=== PATIENT | female | born 1950 | race Two or more races ===

== ENCOUNTER → 2018-02-05 | Outpatient (CLI) | payer OTHER ==
[~2018-02-05] MED LIST: KETO10TA2 PO; ORPH100T PO
== END | disposition home or self-care (01) ==
LOC: LAB 16:41
DX: D64.89 Other specified anemias (principal); M06.4 Inflammatory polyarthropathy; M1A.9XX0 Chronic gout, unspecified, without tophus (tophi); E55.9 Vitamin D deficiency, unspecified; M85.89 Other specified disorders of bone density and structure, multiple sites; M25.462 Effusion, left knee